=== PATIENT | female | born 1980 | race Caucasian/White ===

== ENCOUNTER → 2016-08-06 | Day surgery (SDC) | payer OTHER ==
[~2016-08-06] VITALS: Ht 165.1 cm; Wt 70.3 kg
--- NOTE | 2016-08-06 11:47 | Operative Report ---
Operative/Inv Procedure Report Surgery Date: 08/06/16 Name of Procedure: LEEP Pre-Operative Diagnosis: MILKA II Post-Operative Diagnosis: same Estimated Blood Loss: scant Surgeon/Multigraph Operator: TRACEY WHITAKER MD Anesthesia: IV sedation IV Fluids: Lactated Ringer's Urine Output: 50 mL straight catheter urine at the beginning of the procedure Specimens: Anterior and posterior portion of the cervix Complications: None Condition: Stable Operative Indication: 36 year old female, with abnormal Pap smear, colposcopy was done, cervical biopsy showed [id number] on pathology Operative/Procedure Note Note: The patient was taken to the operating room where IV sedation anesthesia was obtained without difficulty. Patient was then examined under anesthesia. She was then placed in the dorsal lithotomy position and prepared and draped in the usual sterile fashion. A bivalve ruber speculum was then placed in the patient' s vagina. Anterior and posterior portion of the cervix was removed by loop electrode, a rollerball was used to cauterize the bleeding edge of the cervix. Excellent hemostasis was achieved. Monsel solution was also applied to the surface of the cervix for hemostasis. The instruments were withdrawn from the patient's vagina. Laps instruments counts were correct. Patient tolerated the procedure well. The patient was taken to the recovery room in stable condition. Findings: Anterior and posterior cervix acetowhite area seen
== END ==
LOC: STS 02:53
DX: N87.1 Moderate cervical dysplasia (principal); E11.9 Type 2 diabetes mellitus without complications; Z79.4 Long term (current) use of insulin; E78.00 Pure hypercholesterolemia, unspecified
CPT/HCPCS: 36415; 81025; 88307; J2250